=== PATIENT | male | born 1960 | race Caucasian/White ===

== ENCOUNTER 2023-09-27 09:29 | Day surgery (SDC) | payer BC ==
[2023-09-27] VITALS (9 sets, daily range): BP systolic 136–167; BP diastolic 73–88; PULSE 82–90; RESP 16; TEMP 97.8; O2SAT 97–100
[~2023-09-27] VITALS: Ht 182.9 cm; Wt 94.8 kg
[2023-09-27] MEDS ORDERED: LISI20TA28 PO (10:25)
[2023-09-27] MEDS ORDERED: ATOR20TA66 PO (10:28)
[2023-09-27] MEDS ORDERED: ACET-2119 PO (10:28)
[2023-09-27] MEDS ORDERED: FLUO40CA PO (10:28)
[2023-09-27] MEDS ORDERED: IBUP-1985 PO (10:28)
== END 2023-09-27 13:30 | disposition home or self-care (01) ==
LOC: SSTAY O 09:29
PROVIDERS: ATTEND Nurse Practitioner Family
DX: F03.A0 Unspecified dementia, mild, without behavioral disturbance, psychotic disturbance, mood disturbance, and anxiety (principal); I10 Essential (primary) hypertension; M19.90 Unspecified osteoarthritis, unspecified site; G89.29 Other chronic pain; Z79.899 Other long term (current) drug therapy; Z98.890 Other specified postprocedural states; Z98.52 Vasectomy status; Z81.8 Family history of other mental and behavioral disorders; Z82.49 Family history of ischemic heart disease and other diseases of the circulatory system; Z83.3 Family history of diabetes mellitus; Z82.3 Family history of stroke
CPT/HCPCS: 62328; 77002; A6449